=== PATIENT | female | born 1930 | race Caucasian/White ===

== ENCOUNTER 2017-10-25 09:14 | Emergency (ER) | payer MEDICARE ==
[2017-10-25] MEDS ORDERED: Morphine 4 MG/ML VIAL ONE (10:06)
[2017-10-25 10:18] LABS: #Basophils 0.1 thou/uL (0.0-0.2); #Eosinphils 0.3 thou/uL (0.0-0.7); #Neutrophils 5.8 thou/uL (1.40-6.50); %Basophils 0.8 % (0.0-1.0); %Eosinophils 3.6 % (0.0-10.0); %Lymphocytes 21.7 % (21.0-51.0); %Monocytes 10.9 % (0.0-10.0); %Neutrophils 63.1 % (42.0-75.0); Hemoglobin 12.4 g/dL (12.0-16.0); Mean Corpuscular HGB CONC 33.5 g/dL (32.0-36.0); Mean Corpuscular Hemoglobin 30.4 pg (27.0-31.0); Mean Corpuscular Volume 90.9 fl (81.0-99.0); Mean Platelet Volume 6.5 fL (7.4-10.4); Platelet Count 369 thou/uL (130-400); Red Blood Cell (RBC) Count 4.06 mill/uL (4.20-5.40); White Blood Cell (WBC) Count 9.2 thou/uL (4.8-10.8)
--- NOTE | 2017-10-25 10:32 | RAD ---
SINGLE VIEW CHEST: Date: 10/25/17 COMPARISON: 02/08/15. HISTORY: Chest pain after fall. FINDINGS: Single view of the chest shows an enlarged but stable cardiomediastinal silhouette. The MediPort is u nchanged in position. There is no evidence of consolidation, mass, or pleural effusion. Degenerative changes are seen in the spine and shoulders. IMPRESSION: No evidence of acute cardiopulmonary disease. POS: [facility]
--- NOTE | 2017-10-25 10:39 | RAD ---
LEFT SHOULDER 3 VIEWS: Date: 10/25/17 HISTORY: Trauma, left shoulder pain. FINDINGS/IMPRESSION: There are degenerative changes in the left acromioclavicular joint. High-riding humeral head is prese nt, indicative of chronic rotator cuff tear. No acute fracture or dislocation is identified. POS: [facility]
[2017-10-25 10:43] LABS: ALT (SGPT) 10 U/L (8-55); AST (SGOT) 20 U/L (5-34); Albumin 3.3 g/dL (3.4-4.8); Alkaline Phosphatase 76 U/L (40-150); Anion Gap 15 mmol/L (10-20); BUN (Urea Nitrogen) 14 mg/dL (9.8-20.1); Bilirubin, Total 0.3 mg/dL (0.2-1.2); CK (CPK) 48 U/L (29-168); Calc. Creatinine Clearance 0 mL/min (70-130); Carbon Dioxide 25 mmol/L (23-31); Chloride 97 mmol/L (98-107); Estimated GFR-MDRD 71; Globulin 3.9 g/dL (2.4-3.5); Glucose 114 mg/dL (83-110); Potassium 4.6 mmol/L (3.5-5.1); Protein, Total 7.2 g/dL (6.0-8.3); Sodium 132 mmol/L (136-145)
[2017-10-25 10:44] LABS: CKMB 2.1 ng/mL (0-6.6); Troponin I 0.018 ng/mL (< 0.028)
--- NOTE | 2017-10-25 10:51 | RAD ---
LEFT FEMUR 2 VIEWS: Date: 10/25/17 HISTORY: Fall. Left lower extremity pain. FINDINGS/IMPRESSION: The left femur is intact. Degenerative changes are present in the left hip and knee joints. There is an old fracture of the left inferior pubic ramus. POS: [facility]
--- NOTE | 2017-10-25 11:07 | RAD ---
4 VIEWS RIGHT KNEE: Date: 10/25/17 COMPARISON: None. HISTORY: Fall on 10/14/17 with right knee pain. FINDINGS: Four views of the right knee show the patient to be status post right knee arthroplasty without perih ardware lucency or fracture. Vascular calcifications are seen posterior to the knee. IMPRESSION: No evidence of acute osseous abnormality. POS: [facility]
--- NOTE | 2017-10-25 11:15 | RAD ---
LEFT HIP 2 VIEWS: Date: 10/25/17 HISTORY: Fall, left hip pain. FINDINGS: No fracture or dislocation is seen in the left hip. There are acute fractures involving the left supe rior and anterior pubic rami. Old fracture of the left parasymphyseal region. Increased sclerosis in the sacrum on either side, suspicious for age-indeterminate insufficiency fractures. POS: [facility]
--- NOTE | 2017-10-25 11:28 | CT ---
CT BRAIN WITHOUT CONTRAST: HISTORY: Trauma. Fall. COMPARISON: None. FINDINGS: No acute territorial infarct or hemorrhage. No midline shift or mass effect. Ventricular size and e xtraaxial CSF spaces are normal. The calvarium is intact. There is chronic osteitis of the maxillary sinuses bilaterally. Near compl ete fluid filling of the left maxillary sinus. The mastoids are clear. The calvarium is intact. Moderate microangiopathic changes. Mild to moderate atrophy. IMPRESSION: 1. Chronic changes. No acute intracranial abnormality. 2. Chronic osteitis of both maxillary sinuses, suggesting chronic sinusitis. 3. Near complete fluid filling of the left maxillary sinus. 4. 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 If the patient has symptoms of an acute infarction, magnetic resonance imaging is recommended. POS: [facility]
--- NOTE | 2017-10-25 11:31 | RAD ---
AP PELVIS: HISTORY: Fall. Left hip pain. FINDINGS: There are acute fractures involving the left superior and inferior pubic rami. Increased sclerosis i s seen in the sacrum, likely due to age indeterminate insufficiency fractures. An old left parasymph yseal pubic fracture is noted. POS: [facility]
--- NOTE | 2017-10-25 11:39 | CT ---
CT CERVICAL SPINE WITHOUT CONTRAST: HISTORY: Trauma. Fall. COMPARISON: None. FINDINGS: Subtle lunar lucency, right occipital condyle, although there is not felt to be a fracture and is fel t more likely to be a nutrient foramen. The skull base is clear. The odontoid process is intact. There is anterior to inferior endplate height loss at T1, age indete rminate, without a definite fracture line, suggesting chronicity. No paraspinal hematoma. No acute fracture or malalignment of the cervical spine. There is 2 mm C2 over C3 retrolisthesis due to degenerative disk space disease. There is endplate sclerosis throughout the cervical spine. Pos terior disk osteophyte complexes are present. The lung apices appear clear. The paraspinal soft tissues are unremarkable. A large portal venous catheter is in place. IMPRESSION: 1. Degenerative changes, cervical spine, without acute fracture or malalignment. 2. Likely chronic anterior-superior endplate height loss at T1. POS: [facility]
[2017-10-25 11:54] LABS: Bilirubin Negative (Negative); Blood, Urine Negative (Negative); Clarity CLEAR (Clear); Glucose, Urine (Dipstick) Negative (Negative); Leukocyte Negative (Negative); Nitrite Negative (Negative); Protein, Urine (Dipstick) Trace mg/dL (Neg-Trace); Specific Gravity, Urine 1.009 (1.002-1.036); Urobilinogen 0.2 mg/dL (0.2-1.0); pH, Urine 7.5 (5.0-9.0)
[2017-10-25] MEDS ORDERED: Bacitracin Zinc 1 Packet ONE (13:11)
[2017-10-25] MEDS ORDERED: traMADol HCl 50 MG TAB ONE (15:13)
[2017-10-25] MEDS ORDERED: Ketorolac Tromethamine 30 MG/ML VIAL ONE (15:13)
--- NOTE | 2017-10-28 07:27 | RAD ---
LEFT FEMUR TWO VIEWS: HISTORY: Fall. Left lower extremity pain. FINDINGS: The left femur is intact. There are degenerative changes in the knee joint. There are acute fractur es involving the left superior and inferior pubic rami. There is an old fracture of the left pubic p arasymphyseal region. Increased sclerosis in the left sacrum is likely due to an age indeterminate i nsufficiency fracture. POS: [facility]
== END 2017-10-25 18:49 | disposition home or self-care (01) ==
LOC: ERS 09:14
DX: S32.592A Other specified fracture of left pubis, initial encounter for closed fracture (principal); E11.9 Type 2 diabetes mellitus without complications; E03.9 Hypothyroidism, unspecified; F17.220 Nicotine dependence, chewing tobacco, uncomplicated; Z79.899 Other long term (current) drug therapy; W06.XXXA Fall from bed, initial encounter
CPT/HCPCS: 36415; 70450; 71045; 72125; 72170; 80053; 81003; 82550; 82553; 83605; 84484; 85025; 87040; 93005; 94760; 96374; 96375; J1885; J2270

== ENCOUNTER 2019-03-31 17:21 | Emergency (ER) | payer MEDICARE ==
[2019-03-31 18:08] LABS: #Lymphocytes 1.8 thou/uL (1.20-3.40); #Monocytes 0.5 thou/uL (0.11-0.59); #Neutrophils 5.4 thou/uL (1.40-6.50); %Basophils 0.1 % (0.0-1.0); %Eosinophils 0.6 % (0.0-10.0); %Lymphocytes 22.7 % (21.0-51.0); %Monocytes 6.9 % (0.0-10.0); %Neutrophils 69.7 % (42.0-75.0); Hemoglobin 10.9 g/dL (12.0-16.0); Mean Corpuscular Hemoglobin 29.1 pg (27.0-31.0); Mean Corpuscular Volume 88.2 fL (78.0-98.0); Mean Platelet Volume 6.8 fL (7.4-10.4); Platelet Count 274 thou/uL (130-400); RBC Distribution Width 13.4 % (11.5-14.5); Red Blood Cell (RBC) Count 3.73 mill/uL (4.20-5.40); White Blood Cell (WBC) Count 7.8 thou/uL (4.8-10.8)
[2019-03-31 18:34] LABS: ALT (SGPT) 8 U/L (8-55); AST (SGOT) 16 U/L (5-34); Albumin 3.4 g/dL (3.4-4.8); Alkaline Phosphatase 59 U/L (40-110); Anion Gap 15 mmol/L (10-20); BUN (Urea Nitrogen) 23 mg/dL (9.8-20.1); Bilirubin, Total 0.3 mg/dL (0.2-1.2); CK (CPK) 56 U/L (29-168); Calc. Creatinine Clearance 0 mL/min (70-130); Calcium 8.6 mg/dL (7.8-10.44); Carbon Dioxide 23 mmol/L (23-31); Chloride 101 mmol/L (98-107); Estimated GFR-MDRD 59; Globulin 3.4 g/dL (2.4-3.5); Glucose 148 mg/dL (83-110); Potassium 4.3 mmol/L (3.5-5.1); Protein, Total 6.8 g/dL (6.0-8.3); Sodium 135 mmol/L (136-145)
== END 2019-03-31 18:44 | disposition home or self-care (01) ==
LOC: ERS 17:21
DX: Z71.1 Person with feared health complaint in whom no diagnosis is made (principal); E03.9 Hypothyroidism, unspecified; M19.90 Unspecified osteoarthritis, unspecified site; F17.220 Nicotine dependence, chewing tobacco, uncomplicated; Z79.899 Other long term (current) drug therapy
CPT/HCPCS: 36415; 80053; 82550; 85025; 99283

== ENCOUNTER 2019-07-29 08:35 | Emergency (ER) | payer MEDICARE ==
--- NOTE | 2019-07-29 09:36 | RAD ---
RIGHT HIP 2 VIEWS: Date: 07/29/2019 HISTORY: Hip pain that started at 2:30 this morning. No history is given of any trauma. FINDINGS: The bones are demineralized. There are some moderate arthritic changes of the hip joint. There are ex tensive vascular calcifications. Partial visualization and distorted appearance to the left side of t he symphysis is felt to be related to old injury. Increased density along the right side of the sacru m is probably a sequelae of previous sacral insufficiency fractures. IMPRESSION: Arthritic changes of hip. Sclerotic change to right side of sacrum. This is probably related to some chronic insufficiency fracture. CT may be helpful in further assessment of this. POS: [facility]
--- NOTE | 2019-07-29 09:38 | RAD ---
AP PELVIS: Date: 07/29/2019 HISTORY: Right leg pain that started this morning. No history of trauma. COMPARISON: 10/25/17 AP pelvis exam. FINDINGS: Sclerotic bony changes are seen in both the right and left sides of the sacrum. These are stable cons istent with some chronic insufficiency type fractures. Deformity along the left side of the symphysis , as well as the left superior and inferior pubic rami are all also the sequelae of old trauma. No de finite acute injury. IMPRESSION: Old appearing sacral fractures and left superior and inferior pubic rami fractures. No definite acute process. POS: [facility]
--- NOTE | 2019-07-29 10:39 | CT ---
CT PELVIS PERFORMED WITHOUT CONTRAST ENHANCEMENT: Date: 07/29/2019 HISTORY: Right leg pain. COMPARISON: Plain film examinations done 07/29/2019 and 10/26/2019. FINDINGS: Extensive vascular calcifications are noted. Some questionable slight wall thickening to the rectosig moid region. Some of this may just be on the basis of underdistention. It could represent more chroni c type change. The bones are severely demineralized. Chronic appearing insufficiency type fractures are seen involvi ng both the right and left sides of the sacrum. There is marked sclerotic bony change. There are also changes involving the left iliac bone at the SI joint level. I would favor all of these changes to b e chronic in nature. There is a gap between the right-sided sacral fracture which is actually fairly similar in appearance to the previous CT study of 2013. Slightly more prominent portion of the fractu re along the more posterior axis of the sacrum, but this still all appears chronic in nature. Nonunio n fractures of the left superior and inferior pubic rami are also probably on the basis of old insuff iciency fractures. Deformity to the symphysis region is also felt to all be chronic. In the right hip region, the bones are very demineralized. There are arthritic changes, but I do not see any definite fracture in this region. Marked arthritic changes of the lower lumbar spine are seen. IMPRESSION: 1. Old appearing fractures of the sacrum, as well as left superior and inferior pubic rami, and left symphysis region. 2. No definite new abnormalities in the right hip region. If patient's pain persists, CT may be help ful in giving some visual information about early stress-type reaction or early insufficiency fractur es. POS: [facility]
[2019-07-29 11:17] LABS: Bilirubin Negative (Negative); Blood, Urine Negative (Negative); Clarity Clear (Clear); Glucose, Urine (Dipstick) Normal (Negative); Leukocyte Negative Leu/uL (Negative); Nitrite Negative (Negative); Protein, Urine (Dipstick) 20 mg/dL (Neg-Trace); Urobilinogen Normal mg/dL (Less than 2)
[2019-07-29 11:22] LABS: #Basophils 0.1 thou/uL (0.0-0.2); #Monocytes 1.2 thou/uL (0.11-0.59); #Neutrophils 11.9 thou/uL (1.40-6.50); %Basophils 0.3 % (0.0-1.0); %Eosinophils 0.1 % (0.0-10.0); %Lymphocytes 18.4 % (21.0-51.0); %Monocytes 7.2 % (0.0-10.0); Hemoglobin 10.2 g/dL (12.0-16.0); Mean Corpuscular HGB CONC 33.1 g/dL (32.0-36.0); Mean Corpuscular Hemoglobin 27.9 pg (27.0-31.0); Mean Corpuscular Volume 84.3 fL (78.0-98.0); Mean Platelet Volume 7.8 fL (7.4-10.4); Platelet Count 363 thou/uL (130-400); RBC Distribution Width 13.6 % (11.5-14.5); Red Blood Cell (RBC) Count 3.64 mill/uL (4.20-5.40); White Blood Cell (WBC) Count 16.1 thou/uL (4.8-10.8)
[2019-07-29 11:36] LABS: ALT (SGPT) 8 U/L (8-55); AST (SGOT) 14 U/L (5-34); Albumin 3.6 g/dL (3.4-4.8); Alkaline Phosphatase 65 U/L (40-110); Anion Gap 14 mmol/L (10-20); BUN (Urea Nitrogen) 23 mg/dL (9.8-20.1); Bilirubin, Total 0.3 mg/dL (0.2-1.2); Calc. Creatinine Clearance 0 mL/min (70-130); Calcium 8.9 mg/dL (7.8-10.44); Carbon Dioxide 27 mmol/L (23-31); Chloride 100 mmol/L (98-107); Estimated GFR-MDRD 60; Globulin 3.7 g/dL (2.4-3.5); Glucose 149 mg/dL (83-110); Potassium 4.4 mmol/L (3.5-5.1); Protein, Total 7.3 g/dL (6.0-8.3); Sodium 137 mmol/L (136-145)
== END 2019-07-29 13:02 | disposition home or self-care (01) ==
LOC: ERS 08:35
DX: M79.604 Pain in right leg (principal); E03.9 Hypothyroidism, unspecified; M19.90 Unspecified osteoarthritis, unspecified site; F17.220 Nicotine dependence, chewing tobacco, uncomplicated; F17.290 Nicotine dependence, other tobacco product, uncomplicated; Z79.899 Other long term (current) drug therapy
CPT/HCPCS: 51701; 72170; 72192; 80053; 81003; 85025; 96360; 96361; A4353